=== PATIENT | female | born 1985 | race African-American/Black ===

== ENCOUNTER 2016-10-21 10:26 | Emergency (ER) | payer OTHER ==
[~2016-10-21 10:26] MED LIST: ALBUTEROL17 GM INH
== END 2016-10-21 11:03 | disposition home or self-care (01) ==
LOC: CED 10:26
DX: B86 Scabies (principal); Z90.49 Acquired absence of other specified parts of digestive tract; F17.210 Nicotine dependence, cigarettes, uncomplicated; Z98.51 Tubal ligation status
CPT/HCPCS: 99282